=== PATIENT | male | born 1960 | race Asian ===

== ENCOUNTER 2017-12-09 14:04 | Emergency (ER) | payer SELFPAY ==
[~2017-12-09] VITALS: Ht 172.7 cm; Wt 87.5 kg
[~2017-12-09 14:04] MED LIST: AUGMENTIN 875-1 EAC1 ORAL; CEPACOL SORETH1 EACH ORO; NKM
[2017-12-09] MEDS ORDERED: NS 1000ml 2,600 ML IVLG ONE (14:45)
[2017-12-09] MEDS ORDERED: Vancomycin 1.5gm/D5W 250ml 250 ML IVPB ONE (14:45)
[2017-12-09] MEDS ORDERED: Ampicillin/Sulbactam Sod 3 GM in NS 110 ML IVPB ONE (14:45)
[2017-12-09] MEDS ORDERED: Isovue-300 100ml vial INJ PRN (14:45)
--- NOTE | 2017-12-09 15:07 | Emergency Room Report ---
History of Present Illness General Chief Complaint: Earache Source: Patient Present Illness HPI Patient presents with complaints of left ear pain On evaluation however patient has significant edema involving the left facial region Patient reports that symptoms have been ongoing for the past several days Worsened over the past night Pain is 10 out of 10 worse with touch Questionable low-grade fever Denies any chest pain or shortness of breath Pain is localized to the left lower jaw area also the ear Denies any neck pain or photophobia denies any focal weakness Allergies: Coded Allergies: NO KNOWN ALLERGIES (Unverified Allergy, Unknown, 06/12/15) Patient History Past Medical History: see triage record Pertinent Family History: none Reviewed Nursing Documentation: PMH: Agreed; PSxH: Agreed Nursing Documentation-PMH Hx Cardiac Problems: No Hx Cancer: No Hx Gastrointestinal Problems: Yes - c/o diffculty swallowing Hx Neurological Problems: No Review of Systems All Other Systems: negative except mentioned in HPI Physical Exam Vital Signs Date Time Temp Pulse Resp B/P (MAP) Pulse Ox O2 Delivery O2 Flow Rate FiO2 12/09/17 14:19 99.7 81 21 116/76 98 Room Air 99.7 Sp02 EP Interpretation: reviewed, normal General Appearance: no apparent distress Head: other - Edema to the left ear and lower facial region Eyes: bilateral eye PERRL ENT: other Neck: supple Respiratory: normal breath sounds, no rhonchi Cardiovascular #1: regular rate, rhythm, no edema Gastrointestinal: non tender, soft, no mass Musculoskeletal: normal inspection, other - No trismus Neurologic: alert, oriented x3, responsive Skin: other - Significant edema and erythema involving the left lower angle of the jaw, including the parotid region and also the left ear Lymphatic: other - Tender left submental Medical Decision Making Diagnostic Impression: Primary Impression: Otitis externa Additional Impression: Otitis media ER Course Patient shows clinical signs of otitis media/externa There are no signs of any mastoiditis Patient does not appear septic or toxic and will have initial conservative outpatient trial Last Vital Signs Date Time Temp Pulse Resp B/P (MAP) Pulse Ox O2 Delivery O2 Flow Rate FiO2 12/09/17 14:19 99.7 81 21 116/76 98 Room Air 99.7 Status: unchanged Disposition: HOME, SELF-CARE Condition: Stable Scripts Diphenhydramine Hcl* (BENADRYL*) 25 Mg Capsule 25 MG ORAL Q6H PRN for Itching, #20 CAP Prov: Deena Astudillo DO 12/09/17 Ibuprofen* (MOTRIN*) 600 Mg Tablet 600 MG ORAL Q8H PRN for For Pain, #20 TAB 0 Refills Prov: Deena Astudillo DO 12/09/17 Clindamycin Hcl (CLINDAMYCIN HCL) 300 Mg Capsule 300 MG ORAL THREE TIMES A DAY, #30 CAP Prov: Deena Astudillo DO 12/09/17 Additional Instructions: Patient is provided with the discharge instructions notified to follow up with primary doctor in the next 2-3 days otherwise return to the er with any worsening symptoms. Please note that this report is being documented using [employer] technology. This can lead to erroneous entry secondary to incorrect interpretation by the dictating instrument. Deena Astudillo DO December 09, 2017 15:07
[2017-12-09] MEDS ORDERED: Ketorolac 30mg Inj IV ONE (15:45)
[2017-12-09 15:46] LABS: EOSINOPHILS % (AUTO) 3.3 % (0.0-3.0); HEMATOCRIT 45.3 % (42.0-52.0); MEAN CORPUSCULAR VOLUME 88 FL (80-99); MONOCYTES % (AUTO) 11.6 % (1.0-10.0); NEUTROPHILS % (AUTO) 71.2 % (45.0-75.0); PLATELET COUNT 203 K/UL (150-450); RED BLOOD COUNT 5.15 M/UL (4.70-6.10); RED CELL DISTRIBUTION WIDTH 10.1 % (11.6-14.8); WHITE BLOOD COUNT 6.2 K/UL (4.8-10.8)
[2017-12-09 16:04] LABS: ANION GAP 10 mmol/L (5-15); BLOOD UREA NITROGEN 13 mg/dL (7-18); CALCIUM 8.9 MG/DL (8.5-10.1); CARBON DIOXIDE 26 MMOL/L (21-32); CHLORIDE 100 MMOL/L (98-107); CREATININE 0.9 MG/DL (0.55-1.30); POTASSIUM 4.3 MMOL/L (3.5-5.1); SODIUM 136 MMOL/L (136-145)
[2017-12-09 16:23] LABS: ALANINE AMINOTRANSFERASE 53 U/L (12-78); ALBUMIN 3.6 G/DL (3.4-5.0); ALBUMIN/GLOBULIN RATIO 0.9 (1.0-2.7); ALKALINE PHOSPHATASE 62 U/L (46-116); AMYLASE 82 U/L (25-115); ASPARTATE AMINO TRANSFERASE 39 U/L (15-37); BILIRUBIN,TOTAL 1.2 MG/DL (0.2-1.0); CKMB < 0.5 NG/ML (0.0-3.6); CREATINE KINASE 56 U/L (26-308)
[2017-12-09 16:24] LABS: BILIRUBIN,DIRECT 0.3 MG/DL (0.0-0.3)
[2017-12-09 16:35] VITALS: BP 116/76
--- NOTE | 2017-12-09 17:16 | Diagnostic Imaging Report ---
Indication: Left here pain, left facial edema Technique: IV administration nonionic contrast. Venous phase spiral acquisitions obtained through the Multiplanar reconstructions were generated. Total dose length product 777.59 mGycm. CTDIvol(s) 28.19 mGy. Radiation dose was minimized using automated exposure control Comparison: none Findings: There is slight thickening of the skin and edema of the subcutaneous fat in the preauricular and retroauricular regions on the left. There is also slight skin thickening of the left auricle itself. No fluid collections or other findings to suggest abscess demonstrated. The left parotid gland appears unremarkable. The right parotid gland and the bilateral submandibular glands are likewise unremarkable. The left external auditory canal appears unremarkable. The optic globes and retroseptal soft tissues appear unremarkable. There is minimal mucosal thickening of the left maxillary sinus. There may be occlusion of the left maxillary ostium. The remainder the sinuses are clear.. The bones are unremarkable. There is evidence of bilateral dental caries, and there may be some periodontal disease involving the right third mandibular molar. The nasopharynx, oropharynx, and hypopharynx are unremarkable. A few prominent submandibular nodes are noted posteriorly on the left. No cervical mass or adenopathy otherwise. The included intracranial structures are unremarkable. No acute fractures. The mandible is intact. Impression: Evidence of very mild skin thickening and soft tissue edema in the left preauricular and retroauricular region an of the left auricle, may be on the basis of soft tissue cellulitis. No evidence of abscess Minimal sinus disease Dental disease, as described The CT scanner at [facility] is accredited by the [employer] and the scans are performed using protocols designed to limit radiation exposure to as low as reasonably achievable to attain images of sufficient resolution adequate for diagnostic evaluation.
--- NOTE | 2017-12-09 17:18 | Diagnostic Imaging Report ---
Indication: Shortness of breath Technique: One view of the chest Comparison: none Findings: Lungs and pleural spaces are clear. Heart size is normal Impression: No acute process
[2017-12-09] MEDS ORDERED: Solu-MEDROL 125mg Inj IVP ONE (17:30)
[2017-12-09] MEDS ORDERED: CLINDAMYCIN HC300 MG ORAL (17:52)
[2017-12-09] MEDS ORDERED: IBUPROFEN600 MG ORAL (17:52)
[2017-12-09] MEDS ORDERED: BENADRYL25 MG ORAL (17:52)
[2017-12-09 18:24] VITALS: BP 116/76
== END 2017-12-09 18:24 | disposition home or self-care (01) ==
LOC: EMR 15:31
DX: H60.92 Unspecified otitis externa, left ear (principal); H66.92 Otitis media, unspecified, left ear
CPT/HCPCS: 36415; 70488; 71045; 80053; 82150; 82248; 82550; 82553; 83605; 85025; 87040; 96361; 96374; 96375; 99284; J0295; J1885; J2930; J3370; Q9967